=== PATIENT | female | born 1980 | race Caucasian/White ===

== ENCOUNTER 2018-06-23 06:20 | Day surgery (SDC) | payer OTHER ==
[2018-06-23] MEDS ORDERED: COLACE100 MG PO (09:56)
[2018-06-23] MEDS ORDERED: PERCOCET 5-3251 EACH PO (09:56)
== END 2018-06-23 14:30 | disposition home or self-care (01) ==
LOC: CIR.AMB 06:20
DX: K64.8 Other hemorrhoids (principal); K64.2 Third degree hemorrhoids; K62.89 Other specified diseases of anus and rectum